=== PATIENT | female | born 1990 | race Asian ===

== ENCOUNTER 2022-10-12 07:28 | Inpatient (IN) ==
[2022-10-12] MEDS: LACTATED RINGER'S 1,000 ML IV PRN ×3 (08:41→19:03)
[2022-10-12] MEDS ORDERED: OXYTOCIN 30 UNITS/500 ML BAG IV PRN ×3 (08:46→23:31)
[2022-10-12] MEDS ORDERED: LIDOCAINE 1% LOCAL 20 ML VIAL INFIL PRN (08:46)
[2022-10-12] MEDS ORDERED: SODIUM CHLORIDE 0.9% 1000ML 1,000 ML IV PRN (08:46)
[2022-10-12] MEDS ORDERED: DEXTROSE 50% 50 ML SYRINGE IV PRN (08:46)
[2022-10-12] MEDS ORDERED: INSULIN REGULAR 250 UNITS in SODIUM CHLORIDE 0.9% 247.5 ML IV PRN (08:46)
--- NOTE | 2022-10-12 08:54 | Labor Progress Brief Note ---
Date of Service October 12, 2022 Subjective Admitted as planned for induction of labor. Patient seen in clinic yesterday. Has no changes or OB c/o this morning, no new questions. Support person and two nurses including Marianna De La Cruz in room. Assessment & Plan (1) Gestational diabetes: Plan: Induction of labor today as planned; will start with pitocin, eventually AROM, epidural when requested. Insulin/glucose titration protocol ordered with Q1h checks, as patient requires insulin for her GDM. COVID swab sent and already ordered by nursing prior to my arrival. Patient with no new questions nor preferences to express this morning. Admission and Anticipated Discharge Date Admission Date: October 12, 2022 Physical Exam Constitutional: WD/WN, vitals as above Eyes: PERRL, conjunctivae normal, anicteric sclerae Neck: supple Respiratory: normal respiratory effort and able to speak in complete sentences; no respiratory distress Cardiovascular: Rate/Rhythm: regular rate and regular rhythm Extremities: + pedal edema Gastrointestinal (Abdomen): Gravid / AGA, nontender Musculoskeletal: no cyanosis or clubbing, extremities motor strength 5/5 Skin: no rashes, warm and dry Psychiatric: A+Ox3, euthymic affect Genitourinary: Speculum/Bimanual Exam: no vaginal lesions, no vaginal bleeding and uterus nontender OB Exam Abdomen: + vertex and + estimated weight (7) Manual OB Exam: + cervical dilation 2 cm, + cervical effacement 80%, + station -2 and + amniotic fluid (No leaking evident) OB Exam Monitor Tracing: + external FHT monitor used, + external uterine monitor used and + category I Results & Data ([facility]) Vital Signs (Past 12 Hours) Vital Signs Temp Pulse BP 10/12/22 07:57 77 122/69 10/12/22 07:51 98.2 F Coding Level of Care Code None Diagnoses Gestational diabetes O24.419
[2022-10-12 09:48] LABS: Hematocrit (blood only) 34.4 % (34.1-44.9); Hemoglobin 12.2 g/dl (12.0-16.0); Mean Corpuscular Hgb Conc 35.5 g/dL (32.0-36.0); Mean Corpuscular Volume 81.9 fL (80.0-100.0); Mean Platelet Volume 11.1 fL (9.4-12.3); Platelet Count 177 K/uL (130-400); RDW Coefficient of Variation 12.8 % (11.5-14.5); RDW Standard Deviation 37.5 fL (36.4-46.3); White Blood Count 6.41 K/ul (4.8-10.8)
[2022-10-12] MEDS: DEXTROSE 5% 1,000 ML IV PRN ×2 (10:00→20:54)
--- NOTE | 2022-10-12 13:19 | Labor Progress Brief Note ---
Date of Service October 12, 2022 Subjective Unsure if she wants epidural yet; discussed option of doing that prior to AROM and patient ultimately decides to get AROM before epidural. Assessment & Plan (1) Gestational diabetes: Admission and Anticipated Discharge Date Admission Date: October 12, 2022 Physical Exam Genitourinary: /-2 FHT Cat 1 Maxbass Q5-6 AROM clear Results & Data ([facility]) Vital Signs (Past 12 Hours) Vital Signs Temp Pulse Resp BP 10/12/22 13:02 72 138/90 10/12/22 12:53 76 131/92 10/12/22 12:18 75 122/84 10/12/22 11:30 16 10/12/22 11:30 16 10/12/22 10:53 98.2 F 68 17 114/71 10/12/22 09:35 78 125/83 10/12/22 07:57 77 122/69 10/12/22 07:51 98.2 F Coding Level of Care Code None Diagnoses Gestational diabetes O24.419
[2022-10-12] MEDS ORDERED: NALOXONE HCL 0.4 MG/1 ML VIAL/CARP IV PRN (14:23)
[2022-10-12] MEDS ORDERED: ONDANSETRON INJ 2 MG/ML 2 ML VIAL IV PRN (14:23)
[2022-10-12] MEDS ORDERED: NALOXONE HCL 1 MG in SODIUM CHLORIDE 0.9% 1000ML 1,000 ML IV PRN (14:23)
[2022-10-12] MEDS ORDERED: diphenhydrAMINE 50 MG/ML VIAL IV PRN (14:23)
[2022-10-12] MEDS ORDERED: ePHEDrine sulfate 50 MG/ML AMP IV PRN (14:23)
[2022-10-12] MEDS ORDERED: NALBUPHINE HCL INJ 10 MG/ML AMP IV PRN (14:23)
--- NOTE | 2022-10-12 14:25 | Anesthesiology Consultation ---
Date of Service October 12, 2022 Assessment & Plan ASA ASA3 Proposed Anesthesia Anesthesia Type: Labor Epidural Risk / Benefits Reviewed With: PT / POA / Parent / Guardian, Accepts Plan and Informed Consent Obtained History Height/Weight Height: 5 ft 7 in Weight: 79.379 kg Allergies Allergy/AdvReac Type Severity Reaction Status Date / Time Penicillins Allergy Unknown Verified 10/11/22 10:10 Medications Home Medications Medication Instructions Recorded Confirmed Last Taken prenat.vits,alec,foq-dpsd-iasyz 1 tab PO DAILY 02/04/21 10/12/22 10/09/22 blood-glucose meter (OneTouch 02/19/22 10/11/22 Unknown Verio Reflect Meter) levothyroxine 50 mcg tablet 50 mcg PO DAILY #30 tabs 02/19/22 10/12/22 Unknown acetone (urine) test (Ketone Urine #50 ea 02/26/22 10/11/22 Unknown Test strips) pen needle, diabetic 32 gauge x #150 ea 07/08/22 10/11/22 Unknown 5/32" (BD Ultra-Fine Elise Pen Needle) lancets 33 gauge (OneTouch Delica #150 ea 08/24/22 10/11/22 Unknown Plus Lancet) FreeStyle Josue 2 Sensor (flash #2 ea 09/17/22 10/11/22 Unknown glucose sensor) blood sugar diagnostic (OneTouch #150 ea 09/17/22 10/11/22 Unknown Verio test strips) insulin lispro 100 unit/mL 14 unit subcut TID 10/09/22 10/12/22 10/12/22 subcutaneous pen (Humalog KwikPen 0700 (U-100) Insulin) Active Medications Generic Name Dose Route Start Last Admin Trade Name Freq PRN Reason Stop Dose Admin Lactated Ringer's 1,000 mls @ 125 mls/hr 10/12/22 08:46 10/12/22 14:45 Lr IV 10/14/22 08:45 125 mls/hr .Q8H PRN Infusion L&D Protocol Protocol Dextrose 1,000 mls @ 100 mls/hr 10/12/22 08:46 10/12/22 13:32 D5w IV 11/11/22 08:45 75 mls/hr .Q10H PRN Infusion BSG 180 or below Protocol Insulin Human Regular 250 250 mls @ 1 mls/hr 10/12/22 08:46 10/12/22 14:35 units/ Sodium Chloride IV 11/11/22 08:45 1 units/hr .Q24H PRN 1 mls/hr BSG 80mg/dL or ABOVE Titration Protocol Per Protocol Oxytocin 30 units in 500 mls @ 7 mls/hr 10/12/22 08:46 10/12/22 11:50 Pitocin IV 10/14/22 08:45 0.42 units/hr .Q24H PRN 7 mls/hr Labor Induction/Augmentation Titration Protocol 0.42 UNITS/HR Ropivacaine 100 ml 10/12/22 14:23 10/12/22 14:58 Fentanyl 2mcg/Ml Ropivacaine 1.25mg/Ml 100 Ml Bag EPI 10/13/22 14:22 100 ml PRN PRN Administration Pain R/T Labor Protocol Past Medical History Medical History Hypothyroidism PCOS (polycystic ovarian syndrome) Prediabetes Recurrent nevus of cheek Exercise / Class Metabolic Activity II 4-5 Yardwork/Stairs/Walk up hill Past Family History Family History Grandfather (Maternal) Myocardial infarction Father Hypertension Grandmother (Maternal) No problems noted. Grandfather (Maternal) Hypertension Grandmother (Maternal) Diabetes Mother Diabetes Denies family history of Ovarian cancer Prostate cancer Breast cancer Colorectal cancer Uterine cancer Past Surgical History Surgical History History of removal of skin mole No pertinent past surgical history Past Anesthesia History No Hx of Anesthesia Complications and No Family Hx of Anesthesia Complications History of PONV No Hx of PONV and No Hx of Motion Sickness Social History Smoking Status: Never smoker Hx Alcohol Use: No Hx Substance Use: No substance use type: does not use Review of Systems denies fever/cough/ colds/ chest pain/ SOB/ ROSSANA denies ROSSANA Physical Exam Vital Signs Last Vital Signs Temp 36.8 C 10/12/22 10:53 Pulse 68 10/12/22 14:59 Resp 16 10/12/22 13:15 BP 123/81 10/12/22 14:59 Pulse Ox 97 11/15/22 14:56 ENMT Mouth: no TMJ abnormality and no dentition abnormality Thyromental Distance: > or= 3.5 Finger Breadths Mallampati Class: II Neck neck extension not limited Respiratory normal respiratory effort; no respiratory distress Auscultation: lungs clear to auscultation bilaterally Cardiovascular Rate/Rhythm: regular rate and regular rhythm Neurologic moves all extremities Psychiatric Orientation: alert and oriented x 3 Testing Laboratory Results 10/12/22 09:24 10/12/22 10/12/22 10/12/22 14:35 13:30 12:26 POC Glucose 104 H 101 H 89 10/12/22 10/12/22 10/12/22 11:24 10:23 09:23 POC Glucose 91 88 87
[2022-10-12] MEDS ORDERED: LIDOCAINE 2%/EPINEPHRINE 1:200,000 20 ML SDV ONE (14:36)
[2022-10-12] MEDS ORDERED: SODIUM CHLORIDE 0.9% INJ 10 ML VIAL ONE (14:36)
[2022-10-12] MEDS ORDERED: BUPIVACAINE 0.25% 30 ML VIAL ONE (14:36)
[2022-10-12] MEDS ORDERED: ePHEDrine sulfate 50 MG/ML AMP ONE (14:36)
[2022-10-12] MEDS ORDERED: fentaNYL citrate 100 MCG/2 ML VIAL ONE (14:36)
[2022-10-12] MEDS ORDERED: fentaNYL 2MCG/ML ROPIVACAINE 1.25MG/ML 100 ML BAG EPI ONE (14:37)
[2022-10-12] MEDS: fentaNYL 2MCG/ML ROPIVACAINE 1.25MG/ML 100 ML BAG EPI PRN ×2 (14:58→22:12)
--- NOTE | 2022-10-12 23:20 | Delivery Summary ---
Vaginal Delivery Summary Date of Service October 12, 2022 Vaginal Delivery Summary DIAGNOSES: 1. [place] intrauterine at 39w5d gestation. 2. Induction of Labor. 3. Group B Streptococcus Neg 4. A2GDM PROCEDURE: Spontaneous vaginal delivery and repair of 2nd degree laceration / midline episiotomy, with uterine curettage. SURGEON: Kelsey Mesa MD. TECHNOLOGY STRATEGIST: None. ESTIMATED BLOOD LOSS: 400 mL. COMPLICATIONS: None. PLACENTA: Spontaneous and intact with a 3-vessel cord. DISPOSITION: Stable to labor and delivery. DESCRIPTION: Early in the pushing process, bladder was straight cathed with a red rubber. The patient pushed for a bit over two hours, with significant coaching and encouragement, and brought the head to in DOA position. Due to a prolonged phase and significant labial edema, the patient was offered midline episiotomy. At first we discussed using this if I judged that it would likely be beneficial; after two more contractions had occurred, she actively requested to have the episiotomy performed. Betadine prep was poured over the perineum anew, as she had been pushing for quite some time since the initial prep and bladder catheterization had been performed. Midline episiotomy was performed. With the next push after episiotomy, the head delivered. There was one loop of nuchal cord, reduced at the perineum. The right shoulder was anterior and the right arm was flexed so that the right hand was presenting compound alongside the left cheek. The shoulders and body delivered without any difficulty during the next push, and the infant was placed on the maternal abdomen. Bulb suction was provided, and due to thick meconium, the was moved to the warmer for immediate attention from nursery staff. The cord was doubly clamped by the MD and then cut by the MD while bedside RN performed the bulb suction and then transferred the . The cervix, vagina and perineum were examined and were found to have a second-degree laceration consistent with the midline episiotomy, with no extension beyond it. This was repaired using 3-0 and 2-0 vicryl sutures in the usual manner, including crown suture x2 to rebuild the perineal body. The placenta delivered spontaneously and was noted to be intact and with a 3VC. Examination revealed a shred of membrane presenting at the cervical os, thus the cervix was grasped on its anterior lip with a ring forcep and a Km curette was used to gently clear the small piece of remaining membrane from the uterus, ensuring all riojas were clean with good cry. The fundus was firm and lochia minimal immediately after delivery. Due to curettage, IV antibiotic will be added to the patient's orders. [facility] Vaginal Delivery Codes: 30457 global code for the antepartum, delivery, and post-
[2022-10-12] MEDS ORDERED: CLINDAMYCIN/D5W 900 MG/50 ML BAG IV ONE (23:30)
[2022-10-12] MEDS ORDERED: oxyCODONE/ACETAMINOPHEN 5mg/325mg TAB PO PRN (23:31)
[2022-10-12] MEDS ORDERED: BENZOCAINE 20% AER SPR 82.5 GM CAN EXT PRN (23:31)
[2022-10-12] MEDS ORDERED: HYDROCORTISONE ACETATE 25 MG SUPP PR PRN (23:31)
[2022-10-12] MEDS ORDERED: DIPHTHERIA/TETANUS/PERTUSSIS 0.5 ML SYR/VIAL IM ONE (23:31)
[2022-10-13] MEDS: IBUPROFEN 600 MG TAB PO PRN ×4 (00:46→17:20)
[2022-10-13] MEDS: LEVOTHYROXINE SODIUM 50 MCG TABLET PO SCH (06:32)
[2022-10-13 06:52] LABS: Hematocrit (blood only) 29.8 % (34.1-44.9); Hemoglobin 10.5 g/dl (12.0-16.0); Mean Corpuscular Hemoglobin 29.2 pg (25.0-34.0); Mean Corpuscular Hgb Conc 35.2 g/dL (32.0-36.0); Mean Platelet Volume 10.8 fL (9.4-12.3); Platelet Count 172 K/uL (130-400); RDW Coefficient of Variation 12.7 % (11.5-14.5); RDW Standard Deviation 38.5 fL (36.4-46.3); Red Blood Count 3.59 M/uL (3.93-5.22); White Blood Count 10.72 K/ul (4.8-10.8)
--- NOTE | 2022-10-13 06:54 | Obstetrical Progress Note ---
Date of Service October 13, 2022 Assessment & Plan (1) Vaginal delivery: Routine care today, baby in nursery, would like to breastfeed so should begin pumping. Subjective Ambulation: ambulating normally Voiding: no voiding problems Passing Gas:: Yes Diet Tolerance:: regular diet Lochia:: Small Feeding Type:: breast feeding (Wants to BF but baby in nursery and has not tried pumping yet.) Physical Exam Constitutional WD/WN, vitals as above Eyes PERRL, conjunctivae normal, anicteric sclerae Neck normal visual inspection Respiratory normal respiratory effort and able to speak in complete sentences; no respiratory distress and no labored breathing Cardiovascular Rate/Rhythm: regular rate and regular rhythm Extremities: no edema Chest (Breasts) Chest: normal inspection of chest Gastrointestinal (Abdomen) Inspection/Auscultation: abdomen normal to inspection Soft, postgravid Psychiatric A+Ox3, euthymic affect Genitourinary OB Exam Abdomen: + fundal height Fundus: + firm and + relation to umbilicus (fundus just below umbilicus); not tender Results & Data ([facility]) Vital Signs (Past 12 Hours) Vital Signs Temp Pulse Pulse Resp BP BP Pulse Ox 10/13/22 03:52 98.4 F 92 H 16 130/85 99 10/13/22 01:37 97.9 F 71 16 139/96 97 10/13/22 01:14 98.6 F 18 10/13/22 00:44 16 10/13/22 00:14 18 10/13/22 00:00 18 10/12/22 23:44 18 10/12/22 23:19 18 10/12/22 23:13 98.2 F 20 10/12/22 19:00 98.2 F 16 10/13/22 01:14 72 120/77 10/13/22 00:59 77 127/78 10/13/22 00:44 76 122/74 10/13/22 00:29 87 134/82 10/13/22 00:14 77 118/74 10/13/22 00:00 83 120/77 10/12/22 23:44 79 153/78 H 10/12/22 23:29 74 131/85 10/12/22 23:16 74 100 10/12/22 23:14 72 128/79 10/12/22 23:11 73 100 10/12/22 23:06 74 98 10/12/22 23:01 79 96 10/12/22 22:56 83 100 10/12/22 22:51 72 98 10/12/22 22:49 75 128/78 10/12/22 22:46 68 95 10/12/22 22:41 76 99 10/12/22 22:36 78 100 10/12/22 22:31 75 99 10/12/22 22:26 82 100 10/12/22 22:21 68 100 10/12/22 22:19 81 130/86 10/12/22 22:16 78 99 10/12/22 22:11 78 99 10/12/22 21:59 20 10/12/22 21:59 98.4 F 20 10/12/22 22:06 71 99 10/12/22 22:05 68 125/76 10/12/22 22:01 76 99 10/12/22 21:56 72 100 10/12/22 21:51 79 99 10/12/22 21:50 68 127/76 10/12/22 21:46 78 97 10/12/22 21:41 82 97 10/12/22 21:36 81 98 10/12/22 21:34 68 121/74 10/12/22 21:31 85 99 10/12/22 21:26 82 99 10/12/22 21:21 83 100 10/12/22 21:20 73 129/76 10/12/22 21:16 93 H 99 10/12/22 21:11 94 H 99 10/12/22 21:06 97 H 125/85 99 10/12/22 21:01 82 99 10/12/22 20:09 20 10/12/22 20:09 98.4 F 20 10/12/22 20:56 98.4 F 76 20 100 10/12/22 20:51 77 99 10/12/22 20:50 77 138/79 10/12/22 20:46 77 98 10/12/22 20:41 81 99 10/12/22 20:36 87 99 10/12/22 20:35 78 133/65 10/12/22 20:31 80 98 10/12/22 20:26 93 H 99 10/12/22 20:21 91 H 98 10/12/22 20:20 109 H 110/80 11/15/22 20:18 104 H 92 10/12/22 20:16 92 H 99 10/12/22 20:11 99 10/12/22 20:11 94 H 10/12/22 20:11 90 92 10/12/22 20:06 94 H 100 10/12/22 20:04 91 H 10/12/22 20:04 95 H 141/78 H 93 10/12/22 20:01 98 H 99 10/12/22 19:56 74 97 10/12/22 19:51 74 96 10/12/22 19:50 74 120/69 10/12/22 19:46 71 97 10/12/22 19:41 71 96 10/12/22 19:36 75 97 10/12/22 19:34 75 123/72 10/12/22 19:31 89 98 10/12/22 19:26 75 98 10/12/22 19:21 76 98 10/12/22 19:20 77 123/72 10/12/22 19:16 79 98 10/12/22 19:11 72 98 10/12/22 19:06 79 98 10/12/22 19:05 81 122/74 10/12/22 19:01 74 97 10/12/22 18:56 73 97 10/12/22 18:51 68 97 10/12/22 18:50 70 112/67 O2 Del Method 10/13/22 03:52 Room Air 10/13/22 01:37 Room Air 10/13/22 01:14 10/13/22 00:44 10/13/22 00:14 10/13/22 00:00 10/12/22 23:44 10/12/22 23:19 10/12/22 23:13 10/12/22 19:00 10/13/22 01:14 10/13/22 00:59 10/13/22 00:44 10/13/22 00:29 10/13/22 00:14 10/13/22 00:00 10/12/22 23:44 10/12/22 23:29 10/12/22 23:16 10/12/22 23:14 10/12/22 23:11 10/12/22 23:06 10/12/22 23:01 10/12/22 22:56 10/12/22 22:51 10/12/22 22:49 10/12/22 22:46 10/12/22 22:41 10/12/22 22:36 10/12/22 22:31 10/12/22 22:26 10/12/22 22:21 10/12/22 22:19 10/12/22 22:16 10/12/22 22:11 10/12/22 21:59 10/12/22 21:59 10/12/22 22:06 10/12/22 22:05 10/12/22 22:01 10/12/22 21:56 10/12/22 21:51 10/12/22 21:50 10/12/22 21:46 10/12/22 21:41 10/12/22 21:36 10/12/22 21:34 10/12/22 21:31 10/12/22 21:26 10/12/22 21:21 10/12/22 21:20 10/12/22 21:16 10/12/22 21:11 10/12/22 21:06 10/12/22 21:01 10/12/22 20:09 10/12/22 20:09 10/12/22 20:56 10/12/22 20:51 10/12/22 20:50 10/12/22 20:46 10/12/22 20:41 10/12/22 20:36 10/12/22 20:35 10/12/22 20:31 10/12/22 20:26 10/12/22 20:21 10/12/22 20:20 10/12/22 20:18 10/12/22 20:16 10/12/22 20:11 10/12/22 20:11 10/12/22 20:11 10/12/22 20:06 10/12/22 20:04 10/12/22 20:04 10/12/22 20:01 10/12/22 19:56 10/12/22 19:51 10/12/22 19:50 10/12/22 19:46 10/12/22 19:41 10/12/22 19:36 10/12/22 19:34 10/12/22 19:31 10/12/22 19:26 10/12/22 19:21 10/12/22 19:20 10/12/22 19:16 10/12/22 19:11 10/12/22 19:06 10/12/22 19:05 10/12/22 19:01 10/12/22 18:56 10/12/22 18:51 10/12/22 18:50
[2022-10-13] MEDS: PRENATAL VITAMIN 1 TAB PO SCH (08:11)
[2022-10-13] MEDS: ACETAMINOPHEN 325 MG TAB PO PRN ×2 (08:11→20:22)
[2022-10-13] MEDS: DOCUSATE SODIUM 100 MG CAP PO SCH ×2 (08:11→20:22)
--- NOTE | 2022-10-13 08:51 | Anesthesia Procedure Note ---
Date of Service October 13, 2022 Anesthesia Post Epidural Note Vital Signs Vital Signs: Temp Pulse Resp BP Pulse Ox O2 Del Method 36.8 C 81 18 114/75 96 10/13/22 07:23 10/13/22 07:23 10/13/22 07:23 10/13/22 07:23 10/13/22 07:23 10/13/22 07:23 Pain Intensity Abdomen: Pain Intensity: 0 Episiotomy/Laceration: Pain Intensity: 0 Notes Mental Status: alert / awake / arousable and participated in evaluation Nausea / Vomiting: adequately controlled Pain: adequately controlled Airway Patency, RR, SpO2: stable & adequate BP & HR: stable & adequate Hydration State: stable & adequate Neuraxial Anesthesia: was administered and sensory block resolved Anesthetic Complications: no major complications apparent and Pt Satisfied with anesthetic care Epidural: Removed without complications and With tip intact
[2022-10-14] MEDS: IBUPROFEN 600 MG TAB PO PRN ×4 (02:06→19:33)
[2022-10-14 06:24] LABS: Hemoglobin 8.5 g/dl (12.0-16.0)
[2022-10-14] MEDS: LEVOTHYROXINE SODIUM 50 MCG TABLET PO SCH (06:25)
--- NOTE | 2022-10-14 07:58 | Obstetrical Progress Note ---
Date of Service October 14, 2022 Assessment & Plan (1) examination following vaginal delivery: Plan stable ready for dc, may have to room in depending on baby status. reviewed dc instructions. f/u 6wk pp check. reviewed need for extra fe x 6wks. she has constipation and rec colace bid 100mg and capful of miralax a day until bowels soft. discussed care of laceration. discussed bps and offered one wk bp check in office but pt notes has h/o borderline dbp and has cuff at home, will take qpm and call if dbp>100. given treated as gdm, will stop insulin, will have to discuss her followup eval of dm with pcp. rhpos, ri, breast. Day #:: 2 Subjective Ambulation: ambulating normally Voiding: no voiding problems Diet Tolerance:: regular diet Lochia:: Small Feeding Type:: breast feeding notes bottom is sore, using sitz bath. trying to nurse, no milk yet. unclear if baby will go home today. has constipation. Constitutional: + as per Subjective / HPI Physical Exam Constitutional WD/WN, vitals as above Respiratory normal respiratory effort, lungs clear to auscultation Cardiovascular Rate/Rhythm: regular rate and regular rhythm Gastrointestinal (Abdomen) Inspection/Auscultation: abdomen normal to inspection Percussion/Palpation: abdomen soft fundus firm 2 cm below umbilicus Musculoskeletal nt calves no edema Neurologic grossly normal Psychiatric A+Ox3, euthymic affect Results & Data ([facility]) Vital Signs (Past 12 Hours) Vital Signs Temp Pulse Resp BP Pulse Ox O2 Del Method 10/14/22 07:00 98.2 F 73 16 130/90 99 Room Air 10/13/22 23:30 98.8 F 84 18 118/80 97 Room Air 10/13/22 20:11 98.4 F 99 H 16 129/84 96 Room Air
[2022-10-14] MEDS ORDERED: POLYETHYLENE (MIRALAX) 17 GM PACK PO ONE (08:01)
[2022-10-14] MEDS: PRENATAL VITAMIN 1 TAB PO SCH (08:13)
[2022-10-14] MEDS: DOCUSATE SODIUM 100 MG CAP PO SCH (08:13)
== END 2022-10-14 19:46 | disposition home or self-care (01) | DRG 807 ==
LOC: 4S1 07:28 → 4E2 10-13 01:14